=== PATIENT | male | born 1955 | race Caucasian/White ===

== ENCOUNTER 2020-12-21 15:38 | Emergency (ER) | payer MEDICARE ==
[~2020-12-21] VITALS: Ht 182.9 cm; Wt 90.7 kg
[2020-12-21] MEDS ORDERED: OMEPRAZOLE20 MG PO (16:08)
[2020-12-21] MEDS ORDERED: LISINOPRIL10 MG PO (16:08)
== END 2020-12-21 16:59 | disposition home or self-care (01) ==
LOC: ED 15:38
DX: R33.9 Retention of urine, unspecified (principal); K64.4 Residual hemorrhoidal skin tags; F17.200 Nicotine dependence, unspecified, uncomplicated; Z88.8 Allergy status to other drugs, medicaments and biological substances; Z79.899 Other long term (current) drug therapy
CPT/HCPCS: 51702; 51798; 81001; 99283-25

== ENCOUNTER 2021-01-03 12:45 | Day surgery (SDC) | payer MEDICARE ==
[~2021-01-03] VITALS: Ht 182.9 cm; Wt 91.0 kg
[~2021-01-03 12:45] MED LIST: LISINOPRIL10 MG PO; OMEPRAZOLE20 MG PO
--- NOTE | 2021-01-03 15:48 | NUR ---
01/03/21 Grace8 Carrie Walls 154Sadiq- PT ARRIVES TO PACU AROUSABLE TO STIMULI. PT FALLS INSTANTLY BACK TO SLEEP WHEN NOT BEING TALKED TO. RESP EVEN AND UNLABORED. OXYGEN SAT HIGH 90'S ON 3L VIA NC.
--- NOTE | 2021-01-03 18:29 | OR ---
[facility] [address] [place], [place] [address] Signed DATE OF OPERATION: 01/03/2021 SURGEON: Lida Cerda MD PREOPERATIVE DIAGNOSIS: Colon screening. POSTOPERATIVE DIAGNOSIS: Possible small polyp of cecum (excised). PROCEDURE: Total colonoscopy to cecum with cold morcellation biopsy cecum x1. ANESTHESIA: Intravenous sedation; fentanyl 100 mcg and Versed 5 mg. INDICATION: This 65-year-old white man is a patient of Dr. Carlos Breen. He underwent colonoscopy approximately 15 years ago in [place], [place], which was said to be normal. He has no symptoms of bleeding diarrhea or constipation. He does have distant history of hemorrhoidectomy. He still has some hemorrhoidal symptoms from time to time including itching and so on. He is admitted at this time to undergo colonoscopy for surveillance. He understands the risks of bleeding, infection, and perforation. FINDINGS: The prep was excellent. Complete colonoscopy was undertaken to the cecum without question. He had one area of the cecum, which was suggestive of polyp and was excised, though it is uncertain. Final pathology is pending. There were no other findings of concern. DESCRIPTION OF PROCEDURE: The patient was brought to the endoscopy suite and placed in lateral decubitus position, given intravenous sedation to the point of slurred speech and nystagmus. Digital rectal examination was normal except for some internal and external hemorrhoidal change. An Olympus video colonoscope was passed in the rectum and manipulated throughout the colon ultimately intubating the cecum itself. The ileocecal valve was normal. There was a small area that was suggestive of a polyp and it was excised with cold morcellation technique. From that point, the scope was withdrawn and examination throughout showed no sign of abnormality. Retroflexed views showed minimal hemorrhoidal change. The scope was removed and the patient was taken recovery room in good condition. Electronically Signed By: LIDA CERDA MD 01/03/21 1829 PATIENT NAME: KENNETH BRICENO OPERATIVE REPORT DATE OF : 55 REPORT #: [id number] PHYSICIAN: LIDA CERDA MD PCP: CARLOS BREEN MD REPORT IS CONFIDENTIAL AND NOT TO BE RELEASED WITHOUT AUTHORIZATION [facility] [address] [place], [place] [address] Signed CONCLUSION DIAGNOSIS: Possible polyp of cecum (excised). PLAN: If the polyp appears to be an adenoma, recommend repeat colonoscopy in 5 years if not 10 years. Recommend high-fiber diet generally speaking. He will return to the ongoing care of Carlos Breen MD. MD NAYA Gamboa/MODL /[id number] cc: Carlos Breen MD Copies: CARLOS BREEN DMD ~ Electronically Signed By: LIDA CERDA MD 01/03/21 1829 PATIENT NAME: KENNETH BRICENO OPERATIVE REPORT DATE OF : 55 REPORT #: [id number] PHYSICIAN: LIDA CERDA MD PCP: CARLOS BREEN MD REPORT IS CONFIDENTIAL AND NOT TO BE RELEASED WITHOUT AUTHORIZATION
--- NOTE | 2021-01-04 15:25 | PATH ---
[facility] [address] [place], [place] [address] Signed SPECIMEN(S): A CECUM POLYP SPECIMEN SOURCE: A. CECUM POLYP CLINICAL HISTORY: Screening colonoscopy. MICROSCOPIC DESCRIPTION: Histologic sections of all submitted blocks are examined by light microscopy. These findings, together with the gross examination, support the pathologic diagnosis. FINAL PATHOLOGIC DIAGNOSIS: Colon, cecum, polypectomy: - No significant histopathology. - There is no evidence of neoplasia. COMMENT: The sections from the specimen are architecturally normal without crypt distortion. There is no acute or chronic inflammation. There are no abnormal infiltrates. There is no evidence of inflammatory, hyperplastic or adenomatous polyps. TWK:[facility]:C2NR GROSS DESCRIPTION: The specimen, labeled "MC," and designated on the requisition "cecum polyp," is received in formalin and consists of one coleman soft tissue fragment(s) that measure 0.3 cm in greatest dimension. The specimen is entirely submitted in cassette (A1). AT (under the direct supervision of a pathologist) The Gross Description was prepared using a voice recognition system. The report was reviewed for accuracy; however, sound-alike word errors, addition and/or deletions may occur. If there is any question about this report, please contact Client Services. PERFORMING LABORATORY: The technical component was performed by [facility], [address] [place] [id number] ([employer] [employer]: Kellee Su MD; CLIA# [id number]). [facility], [address] [address] (CLIA# [id number]). PATIENT NAME: KENNETH BRICENO PATHOLOGY DATE OF : 55 REPORT #: [id number] PHYSICIAN: [facility] PCP: CARLOS BREEN MD REPORT IS CONFIDENTIAL AND NOT TO BE RELEASED WITHOUT AUTHORIZATION [address] [place], [place] [address] Signed Diagnostician: Abelino Mackey MD Pathologist Electronically Signed 01/04/2021 Copies: ~ PATIENT NAME: KENNETH BRICENO PATHOLOGY DATE OF : 55 REPORT #: [id number] PHYSICIAN: [facility] PCP: CARLOS BREEN MD REPORT IS CONFIDENTIAL AND NOT TO BE RELEASED WITHOUT AUTHORIZATION
== END 2021-01-03 16:24 | disposition home or self-care (01) ==
LOC: OPS 12:45 → DS 12:45 → OPS 14:00 → DS 14:00 → OPS 16:24
PROVIDERS: ATTEND Surgery
PROC: 0DBH8ZX Excision of Cecum, Via Natural or Artificial Opening Endoscopic, Diagnostic (ICD-10-PCS; principal; 2021-01-03 14:00)
DX: Z12.11 Encounter for screening for malignant neoplasm of colon (principal); I10 Essential (primary) hypertension; K59.09 Other constipation; F17.210 Nicotine dependence, cigarettes, uncomplicated; K64.9 Unspecified hemorrhoids; Z88.8 Allergy status to other drugs, medicaments and biological substances; Z20.822 Contact with and (suspected) exposure to COVID-19
CPT/HCPCS: 88305; 99153; G0500; J2250; J7121